=== PATIENT | male | born 2000 | race Caucasian/White ===

== ENCOUNTER 2020-05-25 21:46 | Emergency (ER) | payer OTHER ==
[~2020-05-25 21:46] MED LIST: NAPROXEN500 MG PO; NORCO 5-325 TA1 EACH PO
[2020-05-25] MEDS ORDERED: CEPHALEXIN500 M1 PO (23:44)
== END 2020-05-25 23:56 | disposition home or self-care (01) ==
LOC: FER 21:46
DX: S61.442A Puncture wound with foreign body of left hand, initial encounter (principal); F17.290 Nicotine dependence, other tobacco product, uncomplicated; W34.010A Accidental discharge of airgun, initial encounter; Y92.009 Unspecified place in unspecified non-institutional (private) residence as the place of occurrence of the external cause; Z88.0 Allergy status to penicillin
CPT/HCPCS: 73130

== ENCOUNTER 2021-07-05 11:31 | Emergency (ER) | payer OTHER ==
[~2021-07-05 11:31] MED LIST changes: +CEPHALEXIN500 M1 PO
[2021-07-05 13:54] LABS: BASOPHIL 0.4 % (0-2); EOSINOPHIL 2.4 % (0-5); HCT 42.8 % (42.0-52.0); HGB 14.7 g/dl (13.2-18.0); LYMPHOCYTE 6.3 % (15-48); MCH 31.2 pg (25.0-31.0); MCHC 34.3 g/dL (32.0-36.0); MCV 90.9 fL (78.0-100.0); MONOCYTE 10.2 % (0-12); MPV 9.5 fL (6.0-9.5); NEUTROPHIL 80.3 % (41-80); NRBC 0; PLT 232 K/uL (150-400); RBC 4.71 M/uL (4.70-6.00); RDW 11.9 % (11.5-14.0); WBC 7.6 K/uL (4.0-10.5)
[2021-07-05 14:13] LABS: ALBUMIN 3.8 g/dL (3.4-5.0); BILIRUBIN - TOTAL 0.8 mg/dL (0.2-1.0); BUN/CREAT RATIO (CALC) 15.7 RATIO; CREATININE 0.89 mg/dL (0.67-1.17); GLOBULIN (CALCULATION) 3.1 g/dL; POTASSIUM 3.6 mmol/L (3.5-5.1); TOTAL PROTEIN 6.9 g/dL (6.4-8.2)
[2021-07-05 14:29] LABS: CORONAVIRUS 2019 SARS-COV-2 NEGATIVE (NEGATIVE); INFLUENZA A NAA NEGATIVE (NEGATIVE)
[2021-07-05] MEDS ORDERED: ONDANSETRON ODT4 MG PO (15:07)
== END 2021-07-05 15:31 | disposition home or self-care (01) ==
LOC: FER 11:31
PROVIDERS: Nurse Practitioner Family
DX: R11.2 Nausea with vomiting, unspecified (principal); R19.7 Diarrhea, unspecified; Z20.822 Contact with and (suspected) exposure to COVID-19; Z88.0 Allergy status to penicillin
CPT/HCPCS: 36415; 80053; 85025; J7030; U0002